=== PATIENT | female | born 1935 | race Caucasian/White ===

== ENCOUNTER 2020-01-20 13:31 | Outpatient (RCR) | payer MEDICARE, SELFPAY | END 2020-01-20 14:27 | disposition home or self-care (01) | LOC: PT 13:31 | PROVIDERS: PCP Family Medicine; Visit Provider Family Medicine | DX: R26.89 Other abnormalities of gait and mobility (principal); M19.90 Unspecified osteoarthritis, unspecified site | CPT/HCPCS: 97542 ==